=== PATIENT | male | born 1990 | race Two or more races ===

== ENCOUNTER 2021-05-15 15:00 | Outpatient (CLI) | payer OTHER | END 2021-05-15 15:13 | disposition home or self-care (01) | LOC: RAD 15:00 | DX: M99.01 Segmental and somatic dysfunction of cervical region (principal); M99.02 Segmental and somatic dysfunction of thoracic region; M99.03 Segmental and somatic dysfunction of lumbar region ==

== ENCOUNTER 2021-07-15 08:15 | Emergency (ER) | payer OTHER ==
[~2021-07-15] VITALS: Ht 190.5 cm; Wt 90.3 kg
== END 2021-07-15 08:58 | disposition home or self-care (01) ==
LOC: ER 08:15
DX: M94.0 Chondrocostal junction syndrome [Tietze] (principal)